=== PATIENT | female | born 1935 | race Asian ===

== ENCOUNTER → 2017-04-25 | Outpatient (CLI) | payer MEDICARE, OTHER ==
[~2017-04-25] MED LIST: CALC0.253 PO; CLOP75TA28 PO; LEV100T PO; LOS50T PO
== END | disposition home or self-care (01) ==
LOC: LAB 08:00
PROVIDERS: ATTEND Podiatrist Foot & Ankle Surgery
DX: L82.0 Inflamed seborrheic keratosis (principal)